=== PATIENT | male | born 1955 | race Caucasian/White ===

== ENCOUNTER → 2016-11-16 | Outpatient (CLI) | payer BC | END | disposition home or self-care (01) | LOC: GMAJ 10:15 | PROVIDERS: ATTEND Family Medicine | DX: Z00.00 Encounter for general adult medical examination without abnormal findings (principal) ==

== ENCOUNTER → 2016-12-21 | Outpatient (CLI) | payer BC ==
--- NOTE | 2016-12-21 19:43 | RAD ---
PROCEDURE: Abdomen Flat Upright Clinical History: RUQ PAIN Indication: Same as above Comparison: None Technique: Two views of the abdomen and pelvis were done. Findings: There is no gross evidence of free air in the abdomen or the pelvis . The small and large bowel gas pattern does not show any evidence of obstruction, ileus or bowel wall thickening. There is no visualization of radiopaque calculi in the outline of the urinary tract. Small amount of retained fecal material is seen in the large bowel A phlebolith is seen in the right side of the pelvis. Degenerative changes seen in the lower lumbar spine. Impression: Mild constipation Location of Interpretation: [id number] Electronically signed by: Javan Walter MD 12/21/2016 7:41 PM CDT Workstation: [id number]
--- NOTE | 2016-12-21 20:05 | US ---
EXAM DESCRIPTION: Abdomen,Complete CLINICAL HISTORY: RUQ PAIN COMPARISON: None. FINDINGS: Visualized portions of the aorta are of normal caliber. The pancreas was not visualized due to overlying bowel gas. The echogenicity of the liver is increased compatible with fatty infiltration. There are no gallstones, gallbladder wall thickening or pericholecystic fluid collection. Common bile duct measures 3.5 mm which is within normal limits. Right kidney demonstrates no hydronephrosis. The right kidney measured 10 cm in length. Spleen was not visualized. The left kidney measured 10.7 cm in length. There is no hydronephrosis. There is no free fluid in the abdomen. IMPRESSION: No acute abnormalities. Increased echogenicity of the liver could be secondary to fatty infiltration. Electronically signed by: Jamar Cardoza MD 12/21/2016 8:03 PM CDT
== END | disposition home or self-care (01) ==
LOC: LAB.O 18:25
PROVIDERS: ATTEND Nurse Practitioner Acute Care
DX: R10.11 Right upper quadrant pain (principal)

== ENCOUNTER 2016-12-22 14:54 | Inpatient (IN) | payer BC ==
--- NOTE | 2016-12-22 14:55 | HP ---
SUPERVISING PHYSICIAN: Ludwin Kelsey MD CHIEF COMPLAINT: Epigastric abdominal pain. HISTORY OF PRESENT ILLNESS: This is a 61-year-old male patient who has had some nausea with no vomiting as well as abdominal pain that started last . and Wednesday, his abdominal pain contacted and at times was some better, but most of the time he continued to hurt and called it a nagging, deep pain. Over the weekend it subsided some until Wednesday afternoon and it recurred. On Wednesday, he actually went to work, but by noon that his abdomen was hurting to the point that he came home, tried to rest with no success and came to the after hours clinic at [facility]. In clinic, his abdominal pain was mostly in the right upper quadrant. He was sent to the hospital for labs. His initial white count was 14.2 with a hemoglobin of 14.3 and hematocrit 42.6. Neutrophils were 86.8. CMP was basically within normal limits with the exception of his glucose was slightly elevated and bilirubin was slightly elevated at 1.2. Amylase was 47, lipase 29. He also had an abdominal x-ray and per radiologic interpretation, it showed mild constipation, but no other acute abnormalities. He also had an abdominal sonogram and per radiologic interpretation showed no acute abnormalities with an increased echogenicity of the liver that could be secondary to fatty infiltrate. He was sent home initially and treated with Flagyl and Cipro. He had a followup with Dr. Kelsey this morning. His white count came down to 12,200 in the clinic and he was sent over for an abdominopelvic CT. Per radiologic interpretation, it showed findings suggesting pancreatitis in the head of the pancreas, no pseudocysts, no fluid collection, no free. Also, a small cyst to the inferior left kidney with no stones or hydronephrosis. Also, no bowel obstruction or evidence of significant bowel inflammation, no free air or ascites. Also, right fatty inguinal hernia, not containing bowel. Dr. Kelsey sent the patient over for direct admission. PAST MEDICAL HISTORY: 1. Seasonal allergies. 2. Gastroesophageal reflux disease. 3. Hyperlipidemia. 4. Hypertriglyceridemia. 5. Hypertension. PAST SURGICAL HISTORY: 1. Hernia repair. 2. Vasectomy. 3. Colonoscopy with benign polyps in 2014. CURRENT MEDICATIONS: Per the EMR and awaiting verification. ALLERGIES: NO KNOWN DRUG ALLERGIES. FAMILY HISTORY: His father had asthma, hyperlipidemia and hypertension. His mother had hyperlipidemia, hypertension. He has two healthy brothers. He has one healthy sister. He has one daughter and one son who are both healthy. SOCIAL HISTORY: He is employed at the [employer] in [place]. He is . He has two children. He denies any tobacco, ETOH or illicit drug use. REVIEW OF SYSTEMS: All negative with the exception of history of present illness. PHYSICAL EXAMINATION: VITAL SIGNS: Afebrile. Heart rate 73. Blood pressure 145/85. Respiratory rate 17. O2 saturation 97% on room air. GENERAL: This is a 61-year-old male patient who is lying in his hospital bed. He looks to be in mild pain. HEENT: Normocephalic, atraumatic. Pupils are equal and reactive. Oropharynx is clear. NECK: Supple without mass. RESPIRATORY: Clear to auscultation bilaterally. CHEST: There is equal rise and fall of the chest with inspiration and expiration. CARDIOVASCULAR: Regular rate and rhythm. ABDOMEN: Soft, nondistended. He does have some mild pain to the epigastric area as well as the left upper quadrant. Bowel sounds are positive. There is no rebound tenderness. EXTREMITIES: No cyanosis, clubbing or edema. NEUROLOGIC: Awake, alert and oriented times three. LABORATORY: Labs and films are as per the history of present illness. ASSESSMENT: 1. Acute pancreatitis. 2. Acute epigastric abdominal pain. 3. Gastroesophageal reflux disease. 4. Hypertension. 5. Constipation. 6. Hyperlipidemia, presently well controlled on atorvastatin and fenofibrate. PLAN: We will admit the patient to the hospital. He will be NPO and placed on bowel rest. I have given him some IV fluids as well as Protonix for ulcer prophylaxis and Lovenox for DVT prophylaxis. He will have some Dilaudid for his pain. I will also give him some Zofran for nausea. I will speak with Dr. Stanford, GI specialist from [place], about seeing him in the hospital. He will need a close followup with a GI physician at some point. I have ordered routine labs in the morning. We will continue to monitor the patient closely and follow as needed. Dr. Kelsey is the collaborating physician and available for consultation. #[id number] [facility]
[2016-12-22] MEDS ORDERED: SODIUM CHLORIDE 0.9% (FLUSH) 10 ML SYG IV PRN (17:13)
[2016-12-22] MEDS ORDERED: ONDANSETRON INJ 4 MG/2 ML VIAL IV PRN (17:16)
[2016-12-22] MEDS ORDERED: HYDROmorphone HCL INJ 2 MG/ML VIAL IV PRN (17:19)
[2016-12-22] MEDS ORDERED: IV SET AND CAP CHANGE INJ INJ SCH (17:30)
[2016-12-22] MEDS: PANTOPRAZOLE SODIUM IV 40 MG VIAL IV SCH (18:09)
[2016-12-22] MEDS: KCL 20MEQ/D5 1/2NS 1,000 ML IVS PRN (18:10)
[2016-12-22] MEDS: ENOXAPARIN SODIUM 40 MG/0.4 ML SYG SUBCU SCH (18:10)
[2016-12-22] MEDS: amLODIPine BESYLATE 5 MG TAB PO SCH (23:55)
[2016-12-23] MEDS: KCL 20MEQ/D5 1/2NS 1,000 ML IVS PRN ×3 (02:00→19:22)
[2016-12-23] MEDS: amLODIPine BESYLATE 5 MG TAB PO SCH (09:14)
[2016-12-23] MEDS ORDERED: SODIUM CHLORIDE 0.9% (FLUSH) 10 ML SYG IV SCH (10:00)
[2016-12-23] MEDS ORDERED: MAGNESIUM HYDROXIDE 30 ML UD PO ONE (13:33)
--- NOTE | 2016-12-23 13:36 | PN ---
SUPERVISING PHYSICIAN: Ludwin Kelsey MD DATE: 12/23/16 SUBJECTIVE: The patient is sitting up in his bed. He is quite hungry. He denies any abdominal pain. In fact, he feels much better than previously. He has no complaints of chest pain, shortness of breath, nausea, vomiting, or diarrhea. OBJECTIVE: VITAL SIGNS: Afebrile. Heart rate 69. Blood pressure 125/83. Respiratory rate 17. O2 saturation 97% on room air. LUNGS: Clear to auscultation bilaterally. CARDIAC: Regular rate and rhythm. ABDOMEN: Soft, nondistended, nontender. Bowel sounds are positive. EXTREMITIES: No cyanosis, clubbing or edema. NEUROLOGIC: Awake, alert and oriented times three. LABORATORY: Chemistries are basically within normal limits. Triglycerides 132 , cholesterol 127, LDL 65.2, HDL 37. White count is normalized to 7.9 with a hemoglobin 13, hematocrit 37.9. Preliminary blood cultures are negative to date. All other labs and films have been reviewed via the EMR. ASSESSMENT: 1. Acute pancreatitis. 2. Acute epigastric abdominal pain. 3. Gastroesophageal reflux disease. 4. Hypertension. 5. Constipation. 6. Hyperlipidemia, presently well controlled on atorvastatin and fenofibrate. PLAN: We will continue present supportive care. Since he has had no complaints of abdominal pain in the last 12 hours, I have started him on a clear liquid diet. I spoke with Dr. Arrieta, GI doctor in [place], and he agreed with the present plan, but he would like to see him in his clinic on Wednesday, so he recommended that we advance his diet very slow, keep him on a low- fat, very bland diet. He may need to stay on clear to full liquids until he sees him on Wednesday. He also requested all of his labs and testing and we have faxed those to Dr. Arrieta' office. The patient will be given a disc of his radiology studies. I have encouraged the patient to walk in the halls, which he is doing now. I have encouraged good pulmonary hygiene. I re-started his home medications. He has not had a bowel movement yet, but he has had no further complaints of abdominal pain, so we will watch that. Otherwise, we will continue to monitor the patient closely and follow as needed. Anticipate discharge will be in the morning. Dr. Kelsey is the collaborating physician and available for consultation. [facility][id number] [facility]
[2016-12-23] MEDS ORDERED: MAGNESIUM HYDROXIDE 30 ML UD ONE (14:38)
[2016-12-23] MEDS ORDERED: BISACODYL TAB 5 MG TAB PO ONE (16:58)
[2016-12-23] MEDS: ENOXAPARIN SODIUM 40 MG/0.4 ML SYG SUBCU SCH (17:52)
[2016-12-23] MEDS: PANTOPRAZOLE SODIUM IV 40 MG VIAL IV SCH (17:52)
[2016-12-23] MEDS ORDERED: amLODIPine BESYLATE 5 MG TAB PO SCH (21:45)
[2016-12-24] MEDS: KCL 20MEQ/D5 1/2NS 1,000 ML IVS PRN (08:25)
[2016-12-24] MEDS ORDERED: ENOXAPARIN SODIUM 40 MG/0.4 ML SYG SUBCU SCH (10:30)
[2016-12-24 14:53] VITALS: BP 124/88; TEMP 97.7
[2016-12-24 15:37] VITALS: O2SAT 96
[2016-12-24] MEDS: PANTOPRAZOLE SODIUM IV 40 MG VIAL IV SCH (16:56)
[2016-12-24] MEDS ORDERED: INFLUENZA VIRUS VACC (ADULT) 0.5 ML SYG IM ONE ×2 (17:49→17:54)
--- NOTE | 2016-12-24 19:53 | DS ---
SUPERVISING PHYSICIAN: Ludwin Kelsey M.D. DISCHARGE DIAGNOSIS: 1. Acute pancreatitis. 2. Acute epigastric abdominal pain. 3. Gastroesophageal reflux disease. 4. Hypertension. 5. Constipation. 6. Hyperlipidemia presently well controlled on Atorvastatin and Fenofibrate. HISTORY OF PRESENT ILLNESS: This is a 61-year-old male patient who has had some nausea with no vomiting as well as abdominal pain that started last . and Wednesday, his abdominal pain contacted and at times was some better, but most of the time he continued to hurt and called it a nagging, deep pain. Over the weekend it subsided some until Wednesday afternoon and it recurred. On Wednesday, he actually went to work, but by noon that his abdomen was hurting to the point that he came home, tried to rest with no success and came to the after hours clinic at [facility]. In clinic, his abdominal pain was mostly in the right upper quadrant. He was sent to the hospital for labs. His initial white count was 14.2 with a hemoglobin of 14.3 and hematocrit 42.6. Neutrophils were 86.8. CMP was basically within normal limits with the exception of his glucose was slightly elevated and bilirubin was slightly elevated at 1.2. Amylase was 47, lipase 29. He also had an abdominal x-ray and per radiologic interpretation, it showed mild constipation, but no other acute abnormalities. He also had an abdominal sonogram and per radiologic interpretation showed no acute abnormalities with an increased echogenicity of the liver that could be secondary to fatty infiltrate. He was sent home initially and treated with Flagyl and Cipro. He had a followup with Dr. Kelsey this morning. His white count came down to 12,200 in the clinic and he was sent over for an abdominopelvic CT. Per radiologic interpretation, it showed findings suggesting pancreatitis in the head of the pancreas, no pseudocysts, no fluid collection, no free. Also, a small cyst to the inferior left kidney with no stones or hydronephrosis. Also, no bowel obstruction or evidence of significant bowel inflammation, no free air or ascites. Also, right fatty inguinal hernia, not containing bowel. Dr. Kelsey sent the patient over for direct admission. HOSPITAL COURSE: The patient was placed on bowel rest and given IV fluids overnight after admission. On the morning after his admission, I spoke with Dr. Arrieta and he agreed with the plan of care, and he wanted to see him in his office on Wednesday. The patient had no complaints of abdominal pain. He had no tenderness in the epigastric area. His diet was advanced to clear liquids. Initially he had some mild abdominal pain but throughout the second day he tolerated his clear liquids well. He did have several doses of Dilaudid but all pain resolved after 24 hours in the hospital. His WBCs normalized to 7.9. Chemistries are basically within normal limits. His second amylase was 33 and his second lipase was 23. His diet was then advanced to a full liquid with dry toast. He tolerated that without problems and he will be discharged home today. DISCHARGE PLAN: The patient will be discharged home in stable condition. He is to resume a bland diet. He is also to resume his previous home medications. I discontinued his Prevacid and started him on Protonix. He has a followup appointment with Dr. Kelsey on 12/28/16 at 11:30 AM. He has an appointment with Dr. Ismael Arrieta, optical instrument inspector in [place], [email or web address], 12/25/16 at 2: 00 PM. He is to return to the hospital. Followup with Dr. Kelsey' office for any further problems or complaints. DISCHARGE MEDICATIONS: 1. Amlodipine. 2. Protonix. Dr. Kelsey is the collaborating physician available for consultation. #[id number] [facility]
== END 2016-12-24 18:00 | disposition home or self-care (01) | DRG 440 ==
LOC: MS 14:54
PROVIDERS: ADMIT Nurse Practitioner Acute Care; ATTEND Nurse Practitioner Acute Care
DX: K85.90 Acute pancreatitis without necrosis or infection, unspecified (principal); K21.9 Gastro-esophageal reflux disease without esophagitis; I10 Essential (primary) hypertension; E78.1 Pure hyperglyceridemia; K59.00 Constipation, unspecified; Z79.899 Other long term (current) drug therapy

== ENCOUNTER → 2016-12-22 | Outpatient (CLI) | payer BC ==
--- NOTE | 2016-12-22 12:55 | CT ---
EXAM DESCRIPTION: Abdomen/Pelvis w/wo Contrast CLINICAL HISTORY: RIGHT UPPER QUADRANT ABD PAIN. Epigastric pain. Mildly elevated white blood count. COMPARISON: Gallbladder ultrasound 12/21/2016. TECHNIQUE: Spiral-axial scans at 5.0 mm intervals through the abdomen and pelvis before and after standard dose nonionic IV contrast. Coronal and sagittal 2.0 mm reconstructions. Delayed 5 mm axial helical scans, liver through the pubic symphysis. No adverse reactions. Total Exam DLP 3351.26 mGy - cm. This exam was performed according to our departmental CT dose-optimization program which includes automated exposure control, adjustment of the mA and/or kV according to patient size and/or use of iterative reconstruction technique; to reduce radiation dose to as low as reasonably achievable (ALARA). FINDINGS: Lung bases and pleura: Negative. Liver, Stomach, Spleen, Adrenal Glands: Unremarkable. Pancreas, Gallbladder, Ducts: The capsule around the head of the pancreas is less well-defined compared to the body and tail, and there is minimal adjacent fatty stranding. No cysts and no fluid collections around the pancreas. Gallbladder visualized with normal caliber of the duct. Kidneys and Ureters: Physiologic pararenal stranding symmetric bilaterally. Cyst in the inferior medial cortex of the left kidney. Mesentery: Minimal stranding around the head of the pancreas as described above. No free intraperitoneal air. No ascites. Aorta: Atherosclerotic calcification in the abdominal aorta. Small Bowel: Contains fluid and minimal gas but no wall thickening or distention. Terminal Ileum/Cecum: Not distended. Appendix visualized and normal caliber. Normal density of the surrounding fat. Colon: Normal caliber with increased fecal material in the proximal and mid colon. Markedly redundant sigmoid colon. No diverticula. Pelvic Organs: Prostate gland is abutting the seminal vesicles and the urinary bladder inferior. No radiodense stones in the bladder. No fluid in the anterior peritoneal reflection. Spine and Bony Pelvis: Spondylosis of the endplates at L5-S1 L4-5 in the inferior L3 endplate. Associated discs are bulging with disc space loss. Borderline canal stenosis at L4-5. Minimal spondylosis in the lower thoracic spine. Abdominal Wall/Back Soft Tissues: Fatty right inguinal hernia not containing bowel. IMPRESSION: 1. Findings suggesting pancreatitis in the head of the pancreas. No pseudocyst. No fluid collection. No free air. 2. Small cyst inferior left kidney. No stones or hydronephrosis. 3. No bowel obstruction or evidence of significant bowel inflammation. No free air or ascites. 4. Right fatty inguinal hernia not containing bowel. CRITICAL COMMUNICATION: The critical value was discussed directly by phone with Dr. Matt Kelsey at approximately 1245 hours, on December 22, 2016. Electronically signed by: Stephen Abraham MD 12/22/2016 12:54 PM CDT
== END | disposition home or self-care (01) ==
LOC: CT 11:35
PROVIDERS: ATTEND Family Medicine
DX: R10.11 Right upper quadrant pain (principal)

== ENCOUNTER 2016-12-30 06:00 | Day surgery (SDC) | payer BC ==
[2016-12-30] MEDS: LACTATED RINGERS 1,000 ML ONE (08:15)
--- NOTE | 2016-12-30 09:18 | OP ---
DATE OF PROCEDURE: 12/30/16 PREOPERATIVE DIAGNOSIS: 1. Epigastric pain. 2. Abnormal imaging of the abdomen, abnormal CT scan. 3. History of pancreatitis. POSTOPERATIVE DIAGNOSIS: 1. Gastritis status post biopsies. PROCEDURE: 1. Esophagogastroduodenoscopy. SURGEON: Ismael Arrieta MD. ANESTHESIA: MAC. COMPLICATIONS: None. ESTIMATED BLOOD LOSS: Less than 1 mL. PROCEDURE: Informed consent was obtained prior to sedation. The preprocedure cardiopulmonary assessment was satisfactory. The patient was placed in the left lateral decubitus and was sedated. The tip of the Olympus esophagogastroscope was inserted in the oropharynx and guided through the cricopharyngeus under direct visualization. The esophagus appeared normal. The stomach showed evidence of erosive gastritis mainly in the antrum. This was biopsied with cold forceps for histology. Retroflexion of the cardia showed no abnormality. There was evidence of large polyps likely related to fundic gland polyps. A 1 cm polyp was resected using cold forceps with punch biopsy at the base. The whole polyp was excised. The second portion of the duodenum appeared normal. The duodenal bulb appeared normal. The scope was then withdrawn from the patient without further findings and the procedure was terminated. RECOMMENDATION: 1. Consider EUS plus/minus ERCP. 2. Followup in GI clinic in two weeks. 3. Continue Protonix 40 mg p.o. b.i.d. 4. [place] diet. #[id number] [facility]
[2016-12-30] MEDS ORDERED: PROPOFOL 200 MG/20 ML VIAL IV ONE (10:00)
[2016-12-30 10:06] VITALS: TEMP 97.3
[2016-12-30 10:09] VITALS: BP 138/80; O2SAT 97
== END 2016-12-30 09:45 | disposition home or self-care (01) ==
LOC: AMB 06:00
DX: K29.50 Unspecified chronic gastritis without bleeding (principal); K31.7 Polyp of stomach and duodenum; I10 Essential (primary) hypertension; K21.9 Gastro-esophageal reflux disease without esophagitis; E66.9 Obesity, unspecified; Z68.31 Body mass index [BMI] 31.0-31.9, adult; Z88.8 Allergy status to other drugs, medicaments and biological substances; Z79.82 Long term (current) use of aspirin; Z79.899 Other long term (current) drug therapy
CPT/HCPCS: 00740; 43239; J3490; J7120

== ENCOUNTER → 2018-01-14 | Outpatient (CLI) | payer BC ==
--- NOTE | 2018-01-14 12:30 | CT ---
EXAM DESCRIPTION: Maxillofacial w/wo Contrast: Computed Tomography. CLINICAL HISTORY: CHRONIC SINUSITIS COMPARISON: None Available. TECHNIQUE: Spiral, axial 2.5 mm scans through the paranasal sinuses without contrast. Coronal and sagittal 2.0 mm reconstructions. 2.5 x 2.5 mm bone algorithm Total Exam DLP: 701.06 mGy-cm. This exam was performed according to our departmental CT dose-optimization program which includes automated exposure control, adjustment of the mA and/or kV according to patient size and/or use of iterative reconstruction technique; to reduce radiation dose to as low as reasonably achievable (ALARA). FINDINGS: 2 cm polyp or retention cyst posterior left maxilla. Minimal mucoperiosteal thickening in the inferior right antrum. No air-fluid levels. Minimal narrowing of the bilateral maxillary ostia with near obstruction of the bilateral ostiomeatal units. Bilateral sphenoid, and frontal sinuses are well aerated. Bilateral sphenoid nasal ostia are patent. Minimal mucoperiosteal thickening in the anterior right ethmoid air cells with no air-fluid levels in the remaining ethmoid air cells are negative. Minimal turbinate mucosal hypertrophy in the bilateral nasal passageways. Anterior septum deviated to the right. Mastoid air cells are well aerated. No bone destruction. IMPRESSION: 1. 2 cm polyp or cyst in the left maxillary antrum. Minimal chronic disease in the right antrum. Bilateral ostiomeatal units are almost obstructed. 2. Minimal chronic disease in the anterior right ethmoid air cell. No air-fluid levels in any paranasal sinus cavities. 3. Minimal right septal deviation. Mastoid air cells are unremarkable. Electronically signed by: Stephen Abraham MD 01/14/2018 12:28 PM CDT
== END ==
LOC: CT 09:43
PROVIDERS: ATTEND Family Medicine
DX: J32.9 Chronic sinusitis, unspecified (principal)

== ENCOUNTER → 2018-01-24 | Outpatient (CLI) | payer BC | LOC: LAB.O 08:23 | PROVIDERS: ATTEND Otolaryngology | DX: H16.229 Keratoconjunctivitis sicca, not specified as Sjogren's, unspecified eye (principal) ==

== ENCOUNTER → 2018-04-11 | Outpatient (CLI) | payer BC | LOC: GMAJ 10:45 | PROVIDERS: ATTEND Family Medicine | DX: Z12.5 Encounter for screening for malignant neoplasm of prostate (principal) ==

== ENCOUNTER → 2019-04-20 | Outpatient (CLI) | payer BC | LOC: GMAJ 10:39 | PROVIDERS: ATTEND Family Medicine | DX: N40.1 Benign prostatic hyperplasia with lower urinary tract symptoms (principal); E11.9 Type 2 diabetes mellitus without complications; E78.2 Mixed hyperlipidemia; I10 Essential (primary) hypertension ==

== ENCOUNTER → 2019-10-09 | Outpatient (CLI) | payer BC | LOC: LAB.O 16:39 | DX: R10.13 Epigastric pain (principal); R11.0 Nausea ==

== ENCOUNTER 2019-11-03 16:13 | Emergency (ER) | payer BC ==
[2019-11-03] MEDS ORDERED: cloNIDine HCL 0.1 MG TAB PO ONE (17:12)
--- NOTE | 2019-11-03 17:12 | RAD ---
EXAM: Chest,1 View CLINICAL INDICATION: Hypertension COMPARISON: There is no previous study for comparison. FINDINGS: A single view of the chest was obtained. The heart size is normal. The pulmonary vascularity is unremarkable. The lungs are clear. There is no consolidation, infiltrate, pleural effusion, or pneumothorax. IMPRESSION: No evidence of active pulmonary disease. Electronically signed by: Willie Greenfield MD 11/03/2019 5:11 PM CDT
--- NOTE | 2019-11-03 17:12 | CT ---
EXAM: CT head CLINICAL INDICATION: Hypertension, left arm tingling COMPARISON: There is no previous study for comparison. TECHNIQUE: The CT scan was done using contiguous axial 2.5 mm sections through the brain. This exam was performed according to our departmental dose-optimization program, which includes automated exposure control, adjustment of the mA and/or kV according to patient size and/or use of iterative reconstruction technique. FINDINGS: There is no midline shift, mass effect, or extraaxial fluid collection. There is no evidence of acute intracranial hemorrhage, mass lesion, or cerebral edema. The ventricles and cortical sulci are normal for the patient's age. Bone window images reveal no evidence of a skull fracture. IMPRESSION: No evidence of an acute intracranial process. Electronically signed by: Willie Greenfield MD 11/03/2019 5:11 PM CDT
[2019-11-03 17:44] VITALS: TEMP 96.5
--- NOTE | 2019-11-03 17:57 | ED.PDOC ---
History of Present Illness - General Chief Complaint: Blood Pressure Problem Stated Complaint: Elevated BP Time Seen by Provider: 11/03/19 17:11 Source: patient, RN notes reviewed, Vital Signs reviewed, family - Exam Limitations: no limitations - History of Present Illness Initial Comments: Patient is a 64-year-old white male who presents with complaints of elevated blood pressure and left arm tingling. The symptoms of left arm tingling in his high blood pressure are intermittent in nature. They wax and wane. There is no associated pain with it patient is currently under treatment with his primary care doctor for his elevated blood pressure. Patient only recently quit taking his hydrochlorothiazide. Timing/Duration: 24 hours Severity: mild Improving Factors: nothing Worsening Factors: nothing Associated Symptoms: other - Angling left arm Allergies/Adverse Reactions: Allergies Hydrocodone Allergy (Verified 11/03/19 16:36) Home Medications: Ambulatory Orders amLODIPine BESYLATE [Norvasc] 5 mg PO BEDTIME tab 12/24/16 Aspirin [Aspirin Low Strength] 81 mg PO BEDTIME 12/30/16 Atorvastatin Calcium [Lipitor] 20 mg PO BEDTIME 12/30/16 Cholecalciferol [Vitamin D3] 1,000 unit PO BEDTIME 12/30/16 Coenzyme Q10 (Ubidecarenone) [Coq-10] 100 mg PO BEDTIME 12/30/16 Esomeprazole Magnesium [Nexium] 40 mg PO BEDTIME 12/30/16 Fenofibrate [Tricor] 145 mg PO BEDTIME 12/30/16 Krill Oil [Belcher-3 Krill Oil 1000 mg] 1 cap PO BEDTIME 12/30/16 Loratadine [Claritin] 10 mg PO BEDTIME 12/30/16 Multiple Vitamins W/ Minerals [Mens 50+ Multi Vitamin &] 1 tab PO BEDTIME 12/30/16 Clonidine HCl 0.1 mg PO BID #14 tab 11/03/19 Review of Systems - Review of Systems Constitutional: States: see HPI. Denies: chills, fever, malaise, weakness EENTM: States: no symptoms reported. Denies: eye pain, blurred vision, double vision Respiratory: States: no symptoms reported. Denies: cough, short of breath, stridor, wheezing Cardiology: States: no symptoms reported. Denies: chest pain, palpitations, syncope Gastrointestinal/Abdominal: States: no symptoms reported. Denies: abdominal pain, diarrhea, nausea, vomiting Genitourinary: States: no symptoms reported. Denies: discharge, dysuria Musculoskeletal: States: no symptoms reported. Denies: back pain, joint pain, neck pain Skin: States: no symptoms reported. Denies: change in color, rash Neurological: States: see HPI, numbness. Denies: headache Endocrine: States: no symptoms reported Hematologic/Lymphatic: States: no symptoms reported All other Systems: No Change from Baseline Past Medical History (General) - Patient Medical History Hx Seizures: No Hx Stroke: No Hx Asthma: No Hx of COPD: No Hx Cardiac Disorders: No Hx Congestive Heart Failure: No Hx Pacemaker: No Hx Hypertension: Yes Hx Diabetes: No Hx Gastroesophageal Reflux: Yes Hx Cancer: No Hx MRSA: No Surgical History: other - Vaccination History Hx Tetanus, Diphtheria Vaccination: No Hx Influenza Vaccination: Yes Hx Pneumococcal Vaccination: No - Social History Hx Tobacco Use: No Hx Alcohol Use: No Hx Substance Use: No Hx Substance Use Treatment: No Hx Depression: No Hx Physical Abuse: No Hx Emotional Abuse: No - Female History Patient is a Female of Child Bearing Age (10 -59 yrs old): No Patient : No Family Medical History - Family History Mother Living Status: Still Living Hx Family Asthma: No Hx Family Congestive Heart Failure: No Hx Family Hypertension: Yes Hx Family Stroke: No Hx Cardiac Disease: No Hx Family Diabetes: No Hx Family Cancer: No Father Living Status: Still Living Hx Family Hypertension: Yes Physical Exam - Physical Exam General Appearance: Alert, Comfortable, Well Developed, Well Groomed, Well Hydrated, Well Nourished Eye Exam: bilateral normal Ears, Nose, Throat: hearing grossly normal, normal ENT inspection, normal pharynx Neck: non-tender, full range of motion, supple, normal inspection Respiratory: chest non-tender, lungs clear, normal breath sounds, no respiratory distress, no accessory muscle use Cardiovascular/Chest: normal peripheral pulses, regular rate, rhythm, no edema, no gallop, no JVD, no murmur Peripheral Pulses: radial,right: 2+, radial,left: 2+ Gastrointestinal/Abdominal: normal bowel sounds, non tender Back Exam: normal inspection, no CVA tenderness, no vertebral tenderness Extremity: normal range of motion, non-tender, normal inspection Neurologic: mft II-XII nml as tested, no motor/sensory deficits, alert, normal mood/affect Skin Exam: normal color, warm/dry Lymphatic: no adenopathy Progress - Progress Progress: Differential diagnosis: Hypertensive encephalopathy, CVA, TIA, medication noncompliance among others. - Results/Orders Results/Orders: EKG performed 03 November 2019 at 1622 hrs.: Normal sinus rhythm at 72 bpm, normal axis deviation, no ST or T wave changes, normal EKG. No comparison EKG available at this time. EXAM: CT head CLINICAL INDICATION: Hypertension, left arm tingling COMPARISON: There is no previous study for comparison. TECHNIQUE: The CT scan was done using contiguous axial 2.5 mm sections through the brain. This exam was performed according to our departmental dose-optimization program, which includes automated exposure control, adjustment of the mA and/or kV according to patient size and/or use of iterative reconstruction technique. FINDINGS: There is no midline shift, mass effect, or extraaxial fluid collection. There is no evidence of acute intracranial hemorrhage, mass lesion, or cerebral edema. The ventricles and cortical sulci are normal for the patient's age. Bone window images reveal no evidence of a skull fracture. IMPRESSION: No evidence of an acute intracranial process. Electronically signed by: Willie Greenfield MD 11/03/2019 5:11 PM CDT EXAM: Chest,1 View CLINICAL INDICATION: Hypertension COMPARISON: There is no previous study for comparison. FINDINGS: A single view of the chest was obtained. The heart size is normal. The pulmonary vascularity is unremarkable. The lungs are clear. There is no consolidation, infiltrate, pleural effusion, or pneumothorax. IMPRESSION: No evidence of active pulmonary disease. Electronically signed by: Willie Greenfield MD 11/03/2019 5:11 PM CDT 11/03/19 16:37 Pulse Oximetry Assessment DAILY 11/03/19 16:45 EKG STAT 11/04/19 09:00 Pulse Ox Daily Laboratory Results - last 24 hr 11/03/19 11/03/19 16:44 16:51 WBC 6.3 RBC 4.36 L Hgb 13.4 L Hct 38.2 L MCV 87.7 MCH 30.7 MCHC 35.0 RDW 13.5 Plt Count 295 MPV 7.2 L Absolute Neuts (auto) 3.50 Absolute Lymphs (auto) 2.00 Absolute Monos (auto) 0.60 Absolute Eos (auto) 0.20 Absolute Basos (auto) 0.00 Neutrophils % 55.5 Lymphocytes % 32.0 Monocytes % 9.7 H Eosinophils % 2.5 Basophils % 0.3 PT 10.2 INR 1.03 PTT (SP) 24.7 Sodium 139 Potassium 3.4 L Chloride 107 Carbon Dioxide 24 Anion Gap 11.4 L BUN 17 Creatinine 0.96 BUN/Creatinine Ratio 17.7 Random Glucose 141 H Serum Osmolality 281.4 Calcium 9.1 Magnesium 2.0 Total Bilirubin 0.8 Direct Bilirubin 0.1 Indirect Bilirubin 0.7 AST 27 ALT 32 Alkaline Phosphatase 107 Creatine Kinase 40 CK-MB (CK-2) 0.9 CK-MB (CK-2) % Not Reportable Troponin I < 0.02 B-Natriuretic Peptide 48.9 Serum Total Protein 7.4 Albumin 4.4 Globulin Cancelled Albumin/Globulin Ratio Cancelled Urine Color Yellow Urine Appearance Clear Urine pH 7.0 Ur Specific [place] 1.010 Urine Protein Negative Urine Glucose (UA) Negative Urine Ketones Negative Urine Blood Negative Urine Nitrite Negative Urine Bilirubin Negative Urine Urobilinogen 0.2 Ur Leukocyte Esterase Negative Urine RBC 0 Urine WBC 0 Ur Epithelial Cells 0 Urine Bacteria 0 Vital Signs 11/03/19 11/03/19 11/03/19 16:15 16:30 17:23 Temperature 98 F Pulse Rate [ 82 82 71 Pulse ox] Respiratory 16 16 12 Rate Blood Pressure 167/98 177/121 [L arm] O2 Sat by Pulse 96 96 Oximetry 11/03/19 17:43 Temperature 96.5 F L Pulse Rate [ 70 Pulse ox] Respiratory 18 Rate Blood Pressure 141/88 [L arm] O2 Sat by Pulse 94 L Oximetry Departure - Departure Clinical Impression: Hypertensive encephalopathy, Accelerated hypertension, Nonadherence to medication Time of Disposition: 18:23 Disposition: Discharge to Home or Self Care Condition: Good Departure Forms: ED Discharge - Pt. Copy, Patient Portal Self Enrollment Instructions: DI for High Blood Pressure, High Blood Pressure (DC) Diet: resume usual diet Activity: increase activity as tolerated Referrals: Ludwin Kelsey MD [Primary Care Provider] - 1-5 Days Prescriptions: Clonidine HCl 0.1 mg PO BID #14 tab Home Medications: Ambulatory Orders amLODIPine BESYLATE [Norvasc] 5 mg PO BEDTIME tab 12/24/16 Aspirin [Aspirin Low Strength] 81 mg PO BEDTIME 12/30/16 Atorvastatin Calcium [Lipitor] 20 mg PO BEDTIME 12/30/16 Cholecalciferol [Vitamin D3] 1,000 unit PO BEDTIME 12/30/16 Coenzyme Q10 (Ubidecarenone) [Coq-10] 100 mg PO BEDTIME 12/30/16 Esomeprazole Magnesium [Nexium] 40 mg PO BEDTIME 12/30/16 Fenofibrate [Tricor] 145 mg PO BEDTIME 12/30/16 Krill Oil [Belcher-3 Krill Oil 1000 mg] 1 cap PO BEDTIME 12/30/16 Loratadine [Claritin] 10 mg PO BEDTIME 12/30/16 Multiple Vitamins W/ Minerals [Mens 50+ Multi Vitamin &] 1 tab PO BEDTIME 12/30/16 Clonidine HCl 0.1 mg PO BID #14 tab 11/03/19
[2019-11-03 18:50] VITALS: BP 120/70; O2SAT 96
== END 2019-11-03 18:48 | disposition home or self-care (01) ==
LOC: ER 16:13
DX: I67.4 Hypertensive encephalopathy (principal); I10 Essential (primary) hypertension; R20.8 Other disturbances of skin sensation; K21.9 Gastro-esophageal reflux disease without esophagitis; Z91.14 Patient's other noncompliance with medication regimen; Z88.5 Allergy status to narcotic agent; Z79.899 Other long term (current) drug therapy; Z79.82 Long term (current) use of aspirin

== ENCOUNTER → 2020-03-25 | Outpatient (CLI) | payer BC | LOC: GMAJ 12:59 | PROVIDERS: ATTEND Family Medicine | DX: N40.1 Benign prostatic hyperplasia with lower urinary tract symptoms (principal) ==